=== PATIENT | female | born 1990 | race American Indian/Alaskan Native ===

== ENCOUNTER 2016-09-11 20:50 | Emergency (ER) | payer OTHER ==
[2016-09-11 21:00] VITALS: BP 126/84; PULSE 89; TEMP 97.8; BMI 17.9
[2016-09-11] MEDS ORDERED: SODIUM CHLORIDE 500 ML IV STA (21:18)
[2016-09-11 21:37] LABS: URINE APPEARANCE CLEAR; URINE BILIRUBIN NEGATIVE (NEGATIVE); URINE COLOR LTYELLOW; URINE GLUCOSE (UA) NEGATIVE (NEGATIVE); URINE KETONE NEGATIVE (NEGATIVE); URINE NITRITE NEGATIVE (NEGATIVE); URINE PROTEIN NEGATIVE (NEGATIVE); URINE UROBILINOGEN NEGATIVE E.U./dl (0.2-1.0)
[2016-09-11 21:38] LABS: URINE BLOOD 2+ (NEGATIVE); URINE LEUK ESTERASE 1+ (NEGATIVE)
[2016-09-11 21:39] LABS: URINE BACTERIA RARE /hpf (NONE SEEN); URINE MUCUS RARE; URINE RBC 3 /hpf (0-3); URINE WBC 2 /hpf (3-5)
[2016-09-11 22:05] LABS: BASOPHIL 0.4 % (0-2.0); EOSINOPHIL 0.3 % (0-4.5); MCH 30.3 pg (25.7-33.7); MCHC 33.4 g/dl (32.0-36.0); MEAN CELL VOLUME 90.6 fl (80-96); NEUTROPHILS 67.8 % (42.8-82.8); PLATELET COUNT 225 K/MM3 (134-434); RDW 13.2 % (11.6-15.6); WHITE BLOOD COUNT 13.4 K/mm3 (4.0-10.0)
--- NOTE | 2016-09-11 22:25 | PDOC ---
History of Present Illness - General Chief Complaint: Pain Stated Complaint: PAIN Time Seen by Provider: 09/11/16 21:08 History Source: Patient Exam Limitations: No Limitations - History of Present Illness Travel History: No Initial Comments: 09/11/16 22:25 26yo Female patient presents to ED c/o left rib pain. Patient states symptoms began on Sunday and is constant. Patient has taken Alieve and muscle rub with no relief. She states when she is at rest there is no pain, but when she bends or changes position "it hurts." Patient denies n/v/d fever, constipation, back pain, CP, diff breathing, SOB, cough, smoking, EtOH, drug use, or any other complaints at this time. LNMP: Aug 18. Timing/Duration: reports: getting worse Quality: reports: moderate Abdominal Pain Onset Location: reports: other (Left Ribs) Pain Radiation: reports: no radiation Activities at Onset: reports: exertion, working Treatment Prior to Arrive: improves with: analgesics Aggravating Factors: improves with: Movement, Change in position Alleviating Factors: improves with: Rest Past History - Travel Traveled outside of the country in the last 30 days: No Close contact w/someone who was outside of country & ill: No - Past Medical History Allergies/Adverse Reactions: Allergies Allergy/AdvReac Type Severity Reaction Status Date / Time No Known Allergies Allergy Verified 09/11/16 20:57 Home Medications: Ambulatory Orders Ciprofloxacin [Cipro -] 500 mg PO BID #20 tablet 09/12/16 Cyclobenzaprine HCl [Flexeril -] 10 mg PO TID PRN #21 tablet MDD 3 TABS Ibuprofen 600 mg PO Q6H PRN #30 tablet 09/12/16 - Psycho/Social/Smoking Cessation Hx Suicidal Ideation: No Smoking History: Never smoked Number of Cigarettes Smoked Daily: 0 Information on smoking cessation initiated: No Hx Alcohol Use: No Drug/Substance Use Hx: No Abd/GI Specific PMHX - Complaint Specific PMHX Colitis: No Diverticulitis: No Gall Bladder Disease: No GERD: No Hepatitis: No Irritable Bowel Synd (IBS): No Pancreatitis: No GI Ulcer Disease: No Review of Systems - Review of Systems Able to Perform ROS?: Yes Is the patient limited Latvian proficient: No Constitutional: No: Chills, Fever, Weakness Respiratory: No: Cough, Shortness of Breath, Stridor, Wheezing Cardiac (ROS): No: Chest Pain, Edema, Lightheadedness, Palpitations, Chest Tightness ABD/GI: No: Constipated, Diarrhea, Nausea, Poor Appetite, Poor Fluid Intake, Rectal Bleeding, Vomiting, Tarry Stools : No: Burning, Dysuria, Discharge, Frequency, Flank Pain, Hematuria, Pain, Urgency Musculoskeletal: No: Back Pain, Muscle Pain, Muscle Weakness, Neck Pain Integumentary: No: Bruising, Erythema, Rash Neurological: No: Headache, Numbness, Paresthesia, Seizure, Tingling, Tremors, Weakness, Unsteady Gait, Ataxia, Dizziness All Other Systems: Reviewed and Negative *Physical Exam - Vital Signs Last Vital Signs Temp Pulse Resp BP Pulse Ox 97.8 F 89 12 126/84 96 09/11/16 20:57 09/11/16 20:57 09/11/16 20:57 09/11/16 20:57 09/11/16 20:57 - Physical Exam General Appearance: Yes: Nourished, Appropriately Dressed. No: Apparent Distress, Mild Distress, Moderate Distress, Severe Distress HEENT: positive: EOMI, SHAKIR, Normal ENT Inspection, Normal Voice, Symmetrical, TMs Normal, Pharynx Normal. negative: Pharyngeal Erythema, Tonsillar Exudate, Nasal Congestion, Rhinorrhea, TM Bulging, TM Dull, TM Erythema Neck: positive: Trachea midline, Normal Thyroid, Supple. negative: Tender, Rigid Respiratory/Chest: positive: Lungs Clear, Normal Breath Sounds. negative: Respiratory Distress, Accessory Muscle Use Cardiovascular: positive: Regular Rhythm, Regular Rate. negative: Edema, JVD, Murmur Gastrointestinal/Abdominal: positive: Normal Bowel Sounds, Flat, Soft, Guarding (Involuntary), Tenderness (+ LLQ/Pelvis abd pain). negative: Rebound Musculoskeletal: positive: Normal Inspection, CVA Tenderness (L). negative: CVA Tenderness (R), Decreased Range of Motion, Vertebral Tenderness Extremity: positive: Normal Capillary Refill, Normal Inspection, Normal Range of Motion. negative: Pedal Edema, Swelling Integumentary: positive: Normal Color, Dry, Warm. negative: Hives, Rash Neurologic: positive: field investigator II-XII NML intact, Fully Oriented, Alert, Normal Mood/ Affect, Normal Response, Motor Strength /5 ED Treatment Course - LABORATORY CBC & Chemistry Diagram: 09/11/16 22:00 09/11/16 22:00 - ADDITIONAL ORDERS Additional order review: Laboratory Results 09/11/16 21:30 Urine Color Ltyellow Urine Appearance Clear Urine pH 5.0 Ur Specific [place] 1.019 Urine Protein Negative Urine Glucose (UA) Negative Urine Ketones Negative Urine Blood 2+ H Urine Nitrite Negative Urine Bilirubin Negative Urine Urobilinogen Negative Ur Leukocyte Esterase 1+ H Urine RBC 3 Urine WBC 2 Ur Epithelial Cells Rare Urine Bacteria Rare Urine Mucus Rare Urine HCG, Qual Negative 09/11/16 22:00 RBC 4.73 MCV 90.6 MCHC 33.4 RDW 13.2 MPV 10.0 Neutrophils % 67.8 Lymphocytes % 26.7 Monocytes % 4.8 Eosinophils % 0.3 Basophils % 0.4 - RADIOLOGY Radiology Studies Ordered: Category Date Time Status ABDOMEN & PELVIS CT W/O CONTR [CT] Stat CT Scan 09/11/16 22:15 Ordered - Medications Given in the ED: ED Medications Discontinued Medications Generic Name Dose Route Start Last Admin Trade Name Freq PRN Reason Stop Dose Admin Sodium Chloride 500 mls @ 500 mls/hr 09/11/16 21:18 09/11/16 21:36 Normal Saline - IV 09/11/16 22:17 500 mls/hr ASDIR STA Administration *DC/Admit/Observation/Transfer Diagnosis at time of Disposition: UTI (urinary tract infection) Qualifiers: Urinary tract infection type: urethritis Qualified Code(s): N34.2 - Other urethritis - Discharge Dispostion Disposition: HOME Condition at time of disposition: Stable Admit: No - Prescriptions Prescriptions: Ciprofloxacin [Cipro -] 500 mg PO BID #20 tablet Cyclobenzaprine HCl [Flexeril -] 10 mg PO TID PRN #21 tablet MDD 3 TABS PRN Reason: Pain Ibuprofen 600 mg PO Q6H PRN #30 tablet PRN Reason: Pain - Patient Instructions Printed Discharge Instructions: DI for Urinary Tract Infection (UTI) Additional Instructions: FOLLOW UP WITH YOUR PRIMARY CARE PROVIDER THIS WEEK. CALL TO SCHEDULE APPOINTMENT. TAKE MEDICATIONS PRESCRIBED. RETURN IF YOU EXPERIENCE WORSENING OF YOUR SYMPTOMS. MOTRIN AND CYCLOBENZAPRINE FOR PAIN NEEDED. CIPRO FOR INFECTION. DRINK LOTS OF WATER. Print Language: KINYARWANDA
[2016-09-11 22:50] LABS: CALCIUM 9.1 mg/dL (8.5-10.1); CREATININE 0.7 mg/dL (0.55-1.02)
[2016-09-12] MEDS ORDERED: CEPHALEXIN MONOHYDRATE 500 MG CAPSULE (UD) PO ONE (00:35)
[2016-09-12] MEDS ORDERED: CEPHALEXIN MONOHYDRATE 250 MG CAPSULE (FP) ONE (00:44)
== END 2016-09-12 00:51 | disposition home or self-care (01) ==
LOC: JER 20:50
PROC: 3E0337Z Introduction of Electrolytic and Water Balance Substance into Peripheral Vein, Percutaneous Approach (ICD-10-PCS; principal; 2016-09-11)
DX: N34.2 Other urethritis (principal)
CPT/HCPCS: 36415; 74176-TC; 80048; 81003; 81015; 84703; 85025; 96360; 99282-25

== ENCOUNTER 2019-08-20 13:00 | Emergency (ER) | payer OTHER ==
[2019-08-20 13:28] VITALS: BP 110/80; PULSE 139; TEMP 99.8; BMI 18.3
--- NOTE | 2019-08-20 16:42 | PDOC ---
History of Present Illness - General Chief Complaint: Cold Symptoms Stated Complaint: FLU SYS Time Seen by Provider: 08/20/19 13:52 - History of Present Illness Initial Comments: 08/20/19 16:41 29-year-old female diagnosed with influenza 2 weeks ago now being treated for a secondary sinus infection with Augmentin presents for evaluation of fever and worsening symptoms. She is on a nasal spray as well as Augmentin nasal spray steroidal Past History - Past Medical History Allergies/Adverse Reactions: Allergies Allergy/AdvReac Type Severity Reaction Status Date / Time No Known Allergies Allergy Verified 09/11/16 20:57 Home Medications: Ambulatory Orders Amoxicillin/Potassium Clav [Augmentin 875-125 Tablet] 1 each PO DAILY 08/20/19 CVA: No COPD: No CHF: No DVT: No Dementia: No - Immunization History Immunization Up to Date: Yes - Psycho Social/Smoking Cessation Hx Smoking History: Never smoked Number of Cigarettes Smoked Daily: 0 Hx Alcohol Use: No Drug/Substance Use Hx: No Review of Systems - Review of Systems Constitutional: Yes: Fever HEENTM: Yes: Nose Congestion *Physical Exam - Vital Signs Last Vital Signs Temp Pulse Resp BP Pulse Ox 99.8 F H 139 H 17 110/80 100 08/20/19 13:24 08/20/19 13:24 08/20/19 13:24 08/20/19 13:24 08/20/19 13:24 - Physical Exam 08/20/19 16:41 GENERAL: The patient is awake, alert, and fully oriented, in no acute distress. HEAD: Normal with no signs of trauma. EYES: sclera anicteric, conjunctiva clear. ENT: Ears normal tympanic membranes normal oropharynx clear uvula midline NECK: Normal range of motion LUNGS: Breath sounds equal, clear to auscultation bilaterally. No wheezes, and no crackles. HEART: S1 and S2 without murmur, rub or gallop. ABDOMEN: Soft, nontender, normoactive bowel sounds. No guarding, no rebound. No masses. EXTREMITIES: Normal range of motion, no edema. No clubbing or cyanosis. No cords, erythema, or tenderness. NEUROLOGICAL: Cranial nerves II through XII grossly intact. Normal speech, normal gait. PSYCH: Normal mood, normal affect. SKIN: Warm, Dry, normal turgor, no rashes or lesions noted. ED Treatment Course - RADIOLOGY Radiology Studies Ordered: Category Date Time Status CHEST PA & LAT [RAD] Stat Radiology 08/20/19 15:47 Completed Medical Decision Making - Medical Decision Making 08/20/19 16:41 Chest x-ray clear EKG sinus tachycardia otherwise normal patient to follow-up with primary care physician discussed use of Tylenol Motrin for fever. Discharge - Discharge Information Problems reviewed: Yes Clinical Impression/Diagnosis: Sinus infection Condition: Stable Disposition: HOME - Admission No - Follow up/Referral Referrals: Delbert Adams MD [Staff Physician] - - Patient Discharge Instructions Additional Instructions: Return to the emergency room for worsening symptoms. Tylenol and Motrin as directed for fevers. Continue your antibiotics and nasal spray as directed and without fail follow-up with your nose and throat doctor in 2 to 3 days for further evaluation and treatment options. - Post Discharge Activity
--- NOTE | 2019-08-22 13:57 | EKG ---
Test Reason : Blood Pressure : / mmHG Vent. Rate : 109 BPM Atrial Rate : 109 BPM P-R Int : 130 ms QRS Dur : 072 ms QT Int : 316 ms P-R-T Axes : 074 079 029 degrees QTc Int : 425 ms SINUS TACHYCARDIA POSSIBLE LEFT ATRIAL ENLARGEMENT NONSPECIFIC T WAVE ABNORMALITY ABNORMAL ECG NO PREVIOUS ECGS AVAILABLE Confirmed by MIHAI SANDS MD ([id number]) on 08/22/2019 1:56:44 PM Referred By: Confirmed By:MIHAI SANDS MD
== END 2019-08-20 16:52 | disposition home or self-care (01) ==
LOC: JERFT 13:00
DX: J01.90 Acute sinusitis, unspecified (principal)
CPT/HCPCS: 71046-TC-FY; 93005; 93010; 99282-25